=== PATIENT | male | born 1930 ===

== ENCOUNTER 2016-12-19 07:49 | Observation (INO) | payer MEDICARE, MEDICAID ==
[2016-12-19 07:49] VITALS: PULSE 150; BMI 23.9
--- NOTE | 2016-12-19 10:11 | CT ---
PROCEDURE: CT HEAD WITHOUT CONTRAST. HISTORY: Fall COMPARISON: 12/31/2015. TECHNIQUE: Axial computed tomography images were obtained through the head/brain without intravenous contrast. Radiation dose: Total exam DLP = 876.48 mGy-cm. This CT exam was performed using one or more of the following dose reduction techniques: Automated exposure control, adjustment of the mA and/or kV according to patient size, and/or use of iterative reconstruction technique. FINDINGS: HEMORRHAGE: No intracranial hemorrhage. BRAIN: No mass effect or edema. Cortical atrophy, periventricular small vessel disease VENTRICLES: Unremarkable. No hydrocephalus. CALVARIUM: Unremarkable. PARANASAL SINUSES: Chronic sinusitis primarily affecting sphenoid and ethmoid air cells. MASTOID AIR CELLS: Unremarkable as visualized. No inflammatory changes. OTHER FINDINGS: None. IMPRESSION: No acute intracranial abnormalities. No significant findings to account for the clinical presentation. No significant interval change compared to the prior examination(s).
--- NOTE | 2016-12-19 10:22 | CT ---
PROCEDURE: CT Cervical Spine without contrast HISTORY: Status post fall COMPARISON: 12/18/2015 TECHNIQUE: Axial computed tomography images were obtained of the cervical spine without the use of intravenous contrast. Coronal and sagittal reformatted images were created and reviewed. Radiation dose: Total exam DLP = 521.37 mGy-cm. . This relationship is unchanged grossly from: Automated exposure control, adjustment of the mA and/or kV according to patient size, and/or use of iterative reconstruction technique. FINDINGS: VERTEBRAE: The vertebral bodies are maintained in height. There is grade 1 anterolisthesis at C7-T1. This is unchanged from prior examination. There is mild reversal of the normal lordotic curvature of the cervical spine which indicates possible muscular spasm. The atlantoaxial articulation is significant for slight medial displacement of the right lateral C1 mass relative to C2. However, this is unchanged from prior examination and does not represent the sequela of an acute fracture. The left lateral masses are aligned normally. The odontoid process is intact. There is slight anterior displacement of the tip of the odontoid process relative to anterior border of the foramen magnum. This may indicate laxity of the apical dentate ligament. There is no erosion of the odontoid process. There is prominent soft tissue posterior to the odontoid process extending to the body of the C2 vertebra which may reflect an inflammatory arthropathy such as rheumatoid arthritis. Please correlate clinically. DISCS/SPINAL CANAL/NEURAL FORAMINA: There is severe narrowing of multiple intervertebral disc spaces. There is probable ankylosis of the C4-5 intervertebral disc space. There is obliteration of the intervertebral disc space at C5-6 and almost complete obliteration of the C6-7 disc space. There are irregular subchondral lucencies seen beneath the C4-5 intervertebral articulation and more regular lucency beneath the C5-6 intervertebral articulation. These findings are unchanged compared to prior examination. There is severe multilevel degenerative facet arthropathy with july ankylosis of the inter facet articulations at the C 2-3 level. . PARASPINAL SOFT TISSUES: Unremarkable. OTHER FINDINGS: None. IMPRESSION: No evidence of fracture. Severe multilevel degenerative disc disease and degenerative facet arthropathy with july intervertebral ankylosis at C4-5 ankylosis of the facet joints bilaterally at C2-3. Grade 1 anterolisthesis at C7-T1. Slight anterior displacement of the tip of the odontoid process relative to the anterior border of the foramen magnum, slightly worsened when compared to the prior examination of 12/18/2015. Prominent soft tissues posterior to the C2 vertebra including the odontoid process. This may reflect an inflammatory arthropathy such as rheumatoid arthritis. This is not felt to reflect an acute traumatic injury with hemorrhage. Please correlate with any history of inflammatory arthropathy. Additional minor findings as above.
[2016-12-19] MEDS ORDERED: TDAP Vaccine 0.5 mL Syr IM ONE (11:14)
--- NOTE | 2016-12-19 11:16 | ED PDOC ---
HPI: Trauma/Fall - HPI Time Seen by Provider: 12/19/16 08:21 Chief Complaint (Nursing): Trauma Chief Complaint (Provider): fall History Per: Family (daughter) History/Exam Limitations: clinical condition Onset/Duration Of Symptoms: Mins (prior to arrival ) Additional Complaint(s): Miguel Rodriguez is an 86 year old male, with a previous medical history of Alzheimer's disease and dementia, who presents to the ED via EMS accompanied by his daughter for the evaluation of a fall he sustained prior to arrival. Patient was sent from the longterm after he fell off the bed and sustained a laceration to the right side of his head. History is limited secondary to patient's clinical condition PMD: none provided Past Medical History Reviewed: Historical Data, Nursing Documentation, Vital Signs Vital Signs: Last Vital Signs Temp 98.4 F 12/19/16 07:55 Pulse 75 12/19/16 07:55 Resp 18 12/19/16 07:55 BP 132/75 12/19/16 07:55 Pulse Ox 97 12/19/16 15:34 - Medical History PMH: Alzheimer's Disease, Anemia, Anxiety, Atrial Fibrillation, Benign Prostatic Hyperplasia, CAD, Cardia Arrhythmia, COPD, Dementia, Depression, Deep Vein Thrombosis, Fractures, HTN, Hypercholesterolemia, Hyperthyroidism, Hypothyroidism, Pneumonia, Chronic Kidney Disease (Renal insufficiency) Denies: Asthma, HIV - Surgical History Surgical History: Pacemaker - Family History Family History: States: Unknown Family Hx - Immunization History Hx Tetanus Toxoid Vaccination: No Hx Influenza Vaccination: Yes Hx Pneumococcal Vaccination: Yes - Home Medications Home Medications: Ambulatory Orders Medication Instructions Recorded Benztropine [Cogentin] 1 mg PO DAILY 12/26/15 Rivastigmine 4.6 mg/24 hr [Exelon 4.6 mg TD DAILY 12/26/15 4.6 mg/24 hr Patch] Rosuvastatin Calcium [Crestor] 10 mg PO HS 12/26/15 Acetaminophen [Tylenol] 650 mg PO Q4 PRN 12/27/15 Lactulose [Constulose] 10 gm PO BID 12/27/15 Levothyroxine [Synthroid] 88 mcg PO DAILY 12/27/15 Magnesium Hydroxide [Milk Of 30 ml PO HS PRN 12/27/15 Magnesia] Memantine [Namenda] 10 mg PO DAILY 12/27/15 Multivitamin,Therapeutic [Therems] 1 tab PO DAILY 12/27/15 Acetaminophen [Tylenol 325mg tab] 650 mg PO Q4H PRN 02/14/16 Aspirin [Aspirin Chewable] 81 mg PO DAILY 02/14/16 Bisacodyl [Dulcolax] 10 mg AL DAILY PRN 02/14/16 Famotidine [Pepcid] 20 mg PO HS 02/14/16 Ascorbic Acid [Vitamin C] 1,000 mg PO DAILY 07/10/16 guaiFENesin [Robitussin] 10 ml PO Q6H PRN 07/10/16 Albuterol/Ipratropium [Duoneb 3 3 ml INH BID 12/19/16 mg/0.5 mg (3 ml) UD] - Allergies Allergies/Adverse Reactions: Allergies Allergy/AdvReac Type Severity Reaction Status Date / Time No Known Allergies Allergy Verified 07/10/16 16:37 Review of Systems Review Of Systems: ROS cannot be obtained secondary to pt's inabilty to answer questions. Skin: Positive for: Other (laceration to head ) Physical Exam - Reviewed Nursing Documentation Reviewed: Yes Vital Signs Reviewed: Yes - Physical Exam Appears: Positive for: Well, Non-toxic, No Acute Distress Head Exam: Positive for: NORMAL INSPECTION, NORMOCEPHALIC. Negative for: ATRAUMATIC (1.5 cm laceration to the right superior scalp. no active bleeding noted) Skin: Positive for: Normal Color, Warm, DRY Eye Exam: Positive for: EOMI, Normal appearance, PERRL ENT: Positive for: Normal ENT Inspection Neck: Positive for: Normal, Painless ROM Cardiovascular/Chest: Positive for: Regular Rate, Rhythm Respiratory: Positive for: CNT, Normal Breath Sounds Gastrointestinal/Abdominal: Positive for: Normal Exam, Bowel Sounds, Soft. Negative for: Tenderness Back: Positive for: Normal Inspection. Negative for: L CVA Tenderness, R CVA Tenderness, Vertebral Tenderness Extremity: Positive for: Normal ROM (moving all extremities) Neurologic/Psych: Positive for: Alert, Oriented (x 0) - Laboratory Results Result Diagrams: 12/19/16 12:40 12/19/16 12:40 - ECG O2 Sat by Pulse Oximetry: 97 (RA) Pulse Ox Interpretation: Normal Medical Decision Making Medical Decision Making: Initial Impression: Head Injury to the scalp Initial Plan: * EKG * CXR * CT head w/o contrast * CT C-spine * PTT * PT * boostrix vaccine * reevaluation 10:09 CT head FINDINGS: HEMORRHAGE: No intracranial hemorrhage. BRAIN: No mass effect or edema. Cortical atrophy, periventricular small vessel disease VENTRICLES: Unremarkable. No hydrocephalus. CALVARIUM: Unremarkable. PARANASAL SINUSES: Chronic sinusitis primarily affecting sphenoid and ethmoid air cells. MASTOID AIR CELLS: Unremarkable as visualized. No inflammatory changes. OTHER FINDINGS: None. IMPRESSION: No acute intracranial abnormalities. No significant findings to account for the clinical presentation. No significant interval change compared to the prior examination(s). 10:20 CT C-spine FINDINGS: VERTEBRAE: The vertebral bodies are maintained in height. There is grade 1 anterolisthesis at C7-T1. This is unchanged from prior examination. There is mild reversal of the normal lordotic curvature of the cervical spine which indicates possible muscular spasm. The atlantoaxial articulation is significant for slight medial displacement of the right lateral C1 mass relative to C2. However, this is unchanged from prior examination and does not represent the sequela of an acute fracture. The left lateral masses are aligned normally. The odontoid process is intact. There is slight anterior displacement of the tip of the odontoid process relative to anterior border of the foramen magnum. This may indicate laxity of the apical dentate ligament. There is no erosion of the odontoid process. There is prominent soft tissue posterior to the odontoid process extending to the body of the C2 vertebra which may reflect an inflammatory arthropathy such as rheumatoid arthritis. Please correlate clinically. DISCS/SPINAL CANAL/NEURAL FORAMINA: There is severe narrowing of multiple intervertebral disc spaces. There is probable ankylosis of the C4-5 intervertebral disc space. There is obliteration of the intervertebral disc space at C5-6 and almost complete obliteration of the C6-7 disc space. There are irregular subchondral lucencies seen beneath the C4-5 intervertebral articulation and more regular lucency beneath the C5-6 intervertebral articulation. These findings are unchanged compared to prior examination. There is severe multilevel degenerative facet arthropathy with july ankylosis of the inter facet articulations at the C 2-3 level. . PARASPINAL SOFT TISSUES: Unremarkable. OTHER FINDINGS: None. IMPRESSION: No evidence of fracture. Severe multilevel degenerative disc disease and degenerative facet arthropathy with july intervertebral ankylosis at C4-5 ankylosis of the facet joints bilaterally at C2-3. Grade 1 anterolisthesis at C7 -T1. Slight anterior displacement of the tip of the odontoid process relative to the anterior border of the foramen magnum, slightly worsened when compared to the prior examination of 12/18/2015. Prominent soft tissues posterior to the C2 vertebra including the odontoid process. This may reflect an inflammatory arthropathy such as rheumatoid arthritis. This is not felt to reflect an acute traumatic injury with hemorrhage. Please correlate with any history of inflammatory arthropathy. Additional minor findings as above. Scribe Attestation: Documented by Aleyda Huitron, acting as a scribe for lAeyda Osorio MD. Provider Scribe Attestation: All medical record entries made by the Scribe were at my direction and personally dictated by me. I have reviewed the chart and agree that the record accurately reflects my personal performance of the history, physical exam, medical decision making, and the department course for this patient. I have also personally directed, reviewed, and agree with the discharge instructions and disposition. Disposition - Clinical Impression Clinical Impression: Head injury, Scalp laceration - Patient ED Disposition Is Patient to be Admitted: Yes - Disposition Disposition Time: 11:14 Condition: STABLE - Pt Status Changed To: Hospital Disposition Of: Observation - POA Present On Arrival: Falls Or Trauma Laceration - Laceration Repair right superior scalp Wound Length (In cm): 1.5 Description Of Wound: Linear Wound Cleansed With: Sterile Saline Wound Examination: Irrigated With Saline, No FB With Wound Exploration, No Tendon Injury With Wound Exploration Wound Closure: [place] (x 3)
[2016-12-19 12:51] LABS: BASO % 0.5 % (0.0-2.0); EOS # 0.1 K/uL (0.0-0.7); EOS % 1.8 % (0.0-4.0); HEMATOCRIT 40.3 % (35.0-51.0); LYMPH # 2.4 K/uL (1.0-4.3); LYMPH % 29.4 % (20.0-40.0); MEAN CELL VOLUME 94.8 fl (80.0-94.0); MEAN CORPUSCULAR HEMOGLOBIN 30.8 pg (27.0-31.0); MEAN CORPUSCULAR HGB CONC 32.5 g/dL (33.0-37.0); MEAN PLATELET VOLUME 8.8 fl (7.2-11.7); MONO # 0.6 K/uL (0.0-0.8); MONO % 8.1 % (0.0-10.0); NEUT # 4.8 K/uL (1.8-7.0); NEUT % 60.2 % (50.0-75.0); RED CELL DISTRIBUTION WIDTH 14.5 % (11.5-14.5)
[2016-12-19 13:02] LABS: ALB/GLOB RATIO 1.1 (1.0-2.1); ALKALINE PHOSPHATASE 59 U/L (38-126); ALT/SGPT 36 U/L (21-72); AST/SGOT 29 U/L (17-59); BILIRUBIN,TOTAL 0.9 mg/dl (0.2-1.3); BLOOD UREA NITROGEN 14 mg/dl (9-20); CALCIUM 9.2 mg/dL (8.4-10.2); CARBON DIOXIDE 26 mmol/L (22-30); CHLORIDE 106 mmol/L (98-107); GFR AFRICAN-AMERICAN > 60; GLUCOSE,RANDOM 84 mg/dL (75-110); POTASSIUM 4.6 MMOL/L (3.6-5.0); SODIUM 139 mmol/l (132-148); TOTAL PROTEIN 7.3 G/DL (6.3-8.2)
[2016-12-19 13:08] LABS: PARTIAL THROMBOPLASTIN TIME 24.9 Seconds (25.6-37.1)
--- NOTE | 2016-12-19 17:25 | RAD ---
HISTORY: Admission COMPARISON: 07/14/2016. FINDINGS: LUNGS: No active pulmonary disease. PLEURA: No significant pleural effusion identified, no pneumothorax apparent. CARDIOVASCULAR: Normal. OSSEOUS STRUCTURES: No significant abnormalities. VISUALIZED UPPER ABDOMEN: Normal. OTHER FINDINGS: None. IMPRESSION: No active disease.
[2016-12-19] MEDS ORDERED: Magnesium Hydroxide Susp 30 ml UD PO PRN (21:02)
[2016-12-19] MEDS ORDERED: guaiFENesin 100 mg/5 ml Syrup UD PO PRN (21:02)
[2016-12-19] MEDS: Lactulose 10 gm/15 ml Syrup PO SCH (22:30)
[2016-12-20] MEDS ORDERED: guaiFENesin 200 mg/10 ml Syrup UD PO PRN (01:30)
[2016-12-20] MEDS ORDERED: Levothyroxine 88 MCG TAB PO SCH (06:30)
[2016-12-20 06:53] LABS: ALB/GLOB RATIO 1.1 (1.0-2.1); ALKALINE PHOSPHATASE 56 U/L (38-126); ALT/SGPT 34 U/L (21-72); AST/SGOT 31 U/L (17-59); BILIRUBIN,TOTAL 0.8 mg/dl (0.2-1.3); BLOOD UREA NITROGEN 13 mg/dl (9-20); CALCIUM 8.9 mg/dL (8.4-10.2); CARBON DIOXIDE 26 mmol/L (22-30); CHLORIDE 105 mmol/L (98-107); CHOLESTEROL 94 mg/dL (0-199); GFR AFRICAN-AMERICAN > 60; GLUCOSE,RANDOM 85 mg/dL (75-110); POTASSIUM 4.3 MMOL/L (3.6-5.0); SODIUM 137 mmol/l (132-148); TOTAL PROTEIN 6.7 G/DL (6.3-8.2)
[2016-12-20 07:01] LABS: BASO # 0.1 K/uL (0.0-0.2); BASO % 0.7 % (0.0-2.0); EOS # 0.2 K/uL (0.0-0.7); EOS % 2.6 % (0.0-4.0); HEMATOCRIT 38.2 % (35.0-51.0); LYMPH # 1.9 K/uL (1.0-4.3); LYMPH % 27.6 % (20.0-40.0); MEAN CELL VOLUME 93.6 fl (80.0-94.0); MEAN CORPUSCULAR HEMOGLOBIN 31.2 pg (27.0-31.0); MEAN CORPUSCULAR HGB CONC 33.3 g/dL (33.0-37.0); MEAN PLATELET VOLUME 8.9 fl (7.2-11.7); MONO # 0.8 K/uL (0.0-0.8); MONO % 10.8 % (0.0-10.0); NEUT # 4.1 K/uL (1.8-7.0); NEUT % 58.3 % (50.0-75.0); NRBC % 0.1 % (0.0-0.0)
[2016-12-20 07:17] LABS: THYROID STIMULATING HORMONE 0.71 mIU/ML (0.46-4.68)
[2016-12-20] MEDS ORDERED: Albuterol-Ipratrop 3 mg / 0.5 (3 ml) UD INH SCH (09:00)
[2016-12-20] MEDS ORDERED: Multivitamin With Minerals Tab PO SCH (09:00)
[2016-12-20] MEDS ORDERED: Pneumococcal 23-Valent Vaccine IM ONE (09:07)
[2016-12-20] MEDS: Lactulose 10 gm/15 ml Syrup PO SCH ×2 (09:40→16:50)
[2016-12-20 12:59] VITALS: O2SAT 98
--- NOTE | 2016-12-20 14:19 | CP.PCM.HP ---
History of Present Illness - History of Present Illness History of Present Illness: CC: S/P Fall-Trauma. 86 y/o M, brought from [facility] by EMS and accompany by daughter to [facility] on 12/19/16 to be treated for Head injury associated to fall on DOA with no relief. As per EMS, Pt fell to ground floor from his bed sustaining a scalp laceration to R posterior skull minutes [employer], no c/o of pain, no LOC, no fever. Worsening symptoms: Hx of fall, Dementia, Alzheimer's Disease. Aggravating factor: Pt non verbal, confined to bed/chair > 50% of the day. No: Fever, chills, n/v/d, abdominal pain, CP, palpitations, SOB, cough, LOC, syncope, sick contact. PMHx: Hx Falls, COPD, A Fib, CAD with PPM, HTN, CKD, Renal Insufficiency, DVT 2015, BPH, Hypothyroidism, Hx Osteomyelitis L posterior calcaneous, Dementia, Alzheimer, Depression, Anxiety, Hx. PNA, UTI. CXR shows: No active disease. CT Head: No acute intracranial abnormalities. Cervical CT: No evidence of Fx, severe multilevel degenerative disease. Present on Admission - Present on Admission Any Indicators Present on Admission: Yes History of DVT/PE: Yes Review of Systems - Review of Systems Systems not reviewed;Unavailable: Acuity of Condition, Dementia (non verbal) Past Patient History - Infectious Disease Hx of Infectious Diseases: None - Tetanus Immunizations Tetanus Immunization: Unknown - Past Medical History & Family History Past Medical History?: Yes Pertinent Family History: Unknown - Past Social History Smoking Status: Never Smoked Alcohol: None Drugs: Denies Home Situation {Lives}: Half-Way - CARDIAC Hx Cardiac Disorders: Yes (HLD,PACEMAKER,HTN,AFIB,CAD,DVT) - PULMONARY Hx Respiratory Disorders: Yes Hx Chronic Obstructive Pulmonary Disease (COPD): Yes - NEUROLOGICAL Hx Neurological Disorder: Yes (ALZHEIMER,DEMENTIA) - HEENT Hx HEENT Problems: No - RENAL Hx Chronic Kidney Disease: Yes (Renal insufficiency) - ENDOCRINE/METABOLIC Hx Endocrine Disorders: Yes (HYPOTHYROID) - HEMATOLOGICAL/ONCOLOGICAL Hx Blood Disorders: Yes (ANEMIA) - INTEGUMENTARY Hx Dermatological Problems: No - MUSCULOSKELETAL/RHEUMATOLOGICAL Hx Musculoskeletal Disorders: Yes Hx Falls: Yes Hx Osteomyelitis: Yes (L poterior calcaneous) - GASTROINTESTINAL Hx Gastrointestinal Disorders: No - GENITOURINARY/GYNECOLOGICAL Hx Genitourinary Disorders: Yes Hx Incontinence: Yes Hx Prostate Cancer: Yes (BPH) - PSYCHIATRIC Hx Psychophysiologic Disorder: Yes Hx Anxiety: Yes Hx Depression: Yes Hx Substance Use: No - SURGICAL HISTORY Hx Surgeries: Yes Other/Comment: pacemaker - ANESTHESIA Hx Anesthesia: Yes Hx Anesthesia Reactions: No Meds Allergies/Adverse Reactions: Allergies Allergy/AdvReac Type Severity Reaction Status Date / Time No Known Allergies Allergy Verified 07/10/16 16:37 Physical Exam - Constitutional Appears: No Acute Distress, Chronically Ill - Head Exam Additional comments: Laceration R superior scalp with isaac in place. - Eye Exam Eye Exam: PERRL - ENT Exam ENT Exam: Normal Oropharynx - Neck Exam Neck exam: Positive for: Normal Inspection - Respiratory Exam Respiratory Exam: NORMAL BREATHING PATTERN - Cardiovascular Exam Cardiovascular Exam: REGULAR RHYTHM, Systolic Murmur (1/6 LSB) - GI/Abdominal Exam GI & Abdominal Exam: Normal Bowel Sounds, Soft - Back Exam Additional comments: Sacral redness - Neurological Exam Additional comments: Awake, non verbal, unable to follows commands. - Psychiatric Exam Psychiatric exam: Anxious - Skin Skin Exam: Warm Results - Vital Signs Recent Vital Signs: Last Vital Signs Temp 97.0 F L 12/20/16 12:58 Pulse 75 12/20/16 12:58 Resp 18 12/20/16 12:58 BP 122/64 12/20/16 12:58 Pulse Ox 98 12/20/16 12:58 reviewed Geovanna - Labs Result Diagrams: 12/20/16 05:55 12/20/16 05:55 Labs: Laboratory Results - last 24 hr 12/20/16 12/20/16 05:55 05:55 WBC 7.0 RBC 4.08 L Hgb 12.7 Hct 38.2 MCV 93.6 MCH 31.2 H MCHC 33.3 RDW 14.0 Plt Count 128 L MPV 8.9 Neut % (Auto) 58.3 Lymph % (Auto) 27.6 [place] % (Auto) 10.8 H Eos % (Auto) 2.6 Baso % (Auto) 0.7 Neut # 4.1 Lymph # 1.9 [place] # 0.8 Eos # 0.2 Baso # 0.1 Sodium 137 Potassium 4.3 Chloride 105 Carbon Dioxide 26 Anion Gap 10 BUN 13 Creatinine 0.8 Est GFR ( Amer) > 60 Est GFR (Non-Af Amer) > 60 Random Glucose 85 Calcium 8.9 Total Bilirubin 0.8 AST 31 ALT 34 Alkaline Phosphatase 56 Total Protein 6.7 Albumin 3.5 Globulin 3.2 Albumin/Globulin Ratio 1.1 Triglycerides 56 D Cholesterol 94 LDL Cholesterol Direct 47 HDL Cholesterol 30 TSH 3rd Generation 0.71 reviewed J.P. - Impressions Impression: Cervical Spine CT Reviewed J.P. - Imaging and Cardiology Chest x-ray Status: Report reviewed by me (J.P.) CT scan - head Status: Report reviewed by me (J.P.) Assessment & Plan (1) Scalp laceration Status: Acute Priority: High Comment: R side (2) Fall Status: Acute Priority: High (3) Chronic dementia Status: Chronic Priority: High (4) COPD (chronic obstructive pulmonary disease) Status: Chronic Priority: Medium (5) Hx of deep venous thrombosis Status: Chronic Priority: Medium (6) Hypothyroidism Status: Acute Priority: Medium - Assessment and Plan (Free Text) Plan: Continue Duoneb, Tylenol, Ativan, Namenda and rest of Tx. f/u EKG, OT, speech therapy, swallow eval. - Date & Time Date: 12/20/16 Time: 09:30
[2016-12-20 15:48] VITALS: BP 121/80; PULSE 73; RESP 20; TEMP 98.5
--- NOTE | 2016-12-20 18:01 | CARD ---
APPROVED REPORT EKG Measurement Heart [id number] NV 170P [id number] <Conclusion> Normal sinus rhythm Junctional ST depression, probably normal Borderline ECG
--- NOTE | 2017-01-03 11:34 | CP.PCM.DIS ---
Provider - Provider Date of Admission: 12/19/16 11:14 Attending physician: Sid Pérez MD Time Spent in preparation of Discharge (in minutes): 25 Diagnosis - Discharge Diagnosis (1) Scalp laceration Status: Acute Priority: High (2) Fall Status: Acute Priority: High (3) Chronic dementia Status: Chronic Priority: High (4) COPD (chronic obstructive pulmonary disease) Status: Chronic Priority: Medium (5) Hx of deep venous thrombosis Status: Chronic Priority: Medium (6) Hypothyroidism Status: Acute Priority: Medium Hospital Course - Lab Results Lab Results: Most Recent Lab Values WBC 7.0 K/uL (4.8-10.8) 12/20/16 05:55 RBC 4.08 Mil/uL (4.40-5.90) L 12/20/16 05:55 Hgb 12.7 g/dL (12.0-18.0) 12/20/16 05:55 Hct 38.2 % (35.0-51.0) 12/20/16 05:55 MCV 93.6 fl (80.0-94.0) 12/20/16 05:55 MCH 31.2 pg (27.0-31.0) H 12/20/16 05:55 MCHC 33.3 g/dL (33.0-37.0) 12/20/16 05:55 RDW 14.0 % (11.5-14.5) 12/20/16 05:55 Plt Count 128 K/uL (130-400) L 12/20/16 05:55 MPV 8.9 fl (7.2-11.7) 12/20/16 05:55 Neut % (Auto) 58.3 % (50.0-75.0) 12/20/16 05:55 Lymph % (Auto) 27.6 % (20.0-40.0) 12/20/16 05:55 [place] % (Auto) 10.8 % (0.0-10.0) H 12/20/16 05:55 Eos % (Auto) 2.6 % (0.0-4.0) 12/20/16 05:55 Baso % (Auto) 0.7 % (0.0-2.0) 12/20/16 05:55 Neut # 4.1 K/uL (1.8-7.0) 12/20/16 05:55 Lymph # 1.9 K/uL (1.0-4.3) 12/20/16 05:55 Lucas # 0.8 K/uL (0.0-0.8) 12/20/16 05:55 Eos # 0.2 K/uL (0.0-0.7) 12/20/16 05:55 Baso # 0.1 K/uL (0.0-0.2) 12/20/16 05:55 PT 11.6 Seconds (9.8-13.1) 12/19/16 12:40 INR 1.1 (0.9-1.2) 12/19/16 12:40 APTT 24.9 Seconds (25.6-37.1) L 12/19/16 12:40 Sodium 137 mmol/l (132-148) 12/20/16 05:55 Potassium 4.3 MMOL/L (3.6-5.0) 12/20/16 05:55 Chloride 105 mmol/L (98-107) 12/20/16 05:55 Carbon Dioxide 26 mmol/L (22-30) 12/20/16 05:55 Anion Gap 10 (10-20) 12/20/16 05:55 BUN 13 mg/dl (9-20) 12/20/16 05:55 Creatinine 0.8 mg/dL (0.8-1.5) 12/20/16 05:55 Est GFR ( Amer) > 60 12/20/16 05:55 Est GFR (Non-Af Amer) > 60 12/20/16 05:55 Random Glucose 85 mg/dL (75-110) 12/20/16 05:55 Calcium 8.9 mg/dL (8.4-10.2) 12/20/16 05:55 Total Bilirubin 0.8 mg/dl (0.2-1.3) 12/20/16 05:55 AST 31 U/L (17-59) 12/20/16 05:55 ALT 34 U/L (21-72) 12/20/16 05:55 Alkaline Phosphatase 56 U/L (38-126) 12/20/16 05:55 Total Protein 6.7 G/DL (6.3-8.2) 12/20/16 05:55 Albumin 3.5 g/dL (3.5-5.0) 12/20/16 05:55 Globulin 3.2 gm/dL (2.2-3.9) 12/20/16 05:55 Albumin/Globulin Ratio 1.1 (1.0-2.1) 12/20/16 05:55 Triglycerides 56 mg/DL (0-149) D 12/20/16 05:55 Cholesterol 94 mg/dL (0-199) 12/20/16 05:55 LDL Cholesterol Direct 47 mg/dL (0-129) 12/20/16 05:55 HDL Cholesterol 30 MG/DL (30-70) 12/20/16 05:55 TSH 3rd Generation 0.71 mIU/ML (0.46-4.68) 12/20/16 05:55 - Date & Time of H&P Date of H&P: 12/20/16 Time of H&P: 09:30 Discharge Exam - Head Exam Head Exam: NORMAL INSPECTION, NORMOCEPHALIC. absent: ATRAUMATIC (1.5 cm laceration to the right superior scalp. no active bleeding noted) Discharge Plan - Follow Up Plan Condition: STABLE Disposition: TRANSF TO SNF Additional Instructions: patient cleared for discharge to [facility] today by Dr.Pinal wilcox. current meds Referrals: Sid Pérez MD [Staff Provider] -
== END 2016-12-20 20:20 ==
LOC: H.ER 07:49 → H.ERHOLD 11:14 → H.TEL 16:31
PROVIDERS: ADMIT Internal Medicine Pulmonary Disease; ATTEND Internal Medicine Pulmonary Disease
DX: S01.01XA Laceration without foreign body of scalp, initial encounter (principal); G30.9 Alzheimer's disease, unspecified; F02.80 Dementia in other diseases classified elsewhere, unspecified severity, without behavioral disturbance, psychotic disturbance, mood disturbance, and anxiety; I12.9 Hypertensive chronic kidney disease with stage 1 through stage 4 chronic kidney disease, or unspecified chronic kidney disease; M50.321 Other cervical disc degeneration at C4-C5 level; I48.91 Unspecified atrial fibrillation; I25.10 Atherosclerotic heart disease of native coronary artery without angina pectoris; N18.9 Chronic kidney disease, unspecified; E03.9 Hypothyroidism, unspecified; E78.00 Pure hypercholesterolemia, unspecified; J44.9 Chronic obstructive pulmonary disease, unspecified; N40.0 Benign prostatic hyperplasia without lower urinary tract symptoms; Z23 Encounter for immunization; W06.XXXA Fall from bed, initial encounter; Z95.0 Presence of cardiac pacemaker; Z91.81 History of falling; Z74.01 Bed confinement status; Z85.46 Personal history of malignant neoplasm of prostate; Z86.718 Personal history of other venous thrombosis and embolism; Z87.01 Personal history of pneumonia (recurrent); Y92.129 Unspecified place in nursing home as the place of occurrence of the external cause
CPT/HCPCS: 36415; 70450; 71010; 72125; 80053; 80061; 84443; 85025; 85610; 85730; 90471; 90715; 90732; 92526; 92610; 93005; 94640; 99285; G0009; G0378; G8996; G8997; J2060

== ENCOUNTER 2017-11-02 14:09 | Inpatient (IN) | payer MEDICARE, MEDICAID ==
[2017-11-02 14:09] VITALS: PULSE 150
--- NOTE | 2017-11-02 14:44 | ED PDOC ---
HPI: Altered Mental Status Time Seen by Provider: 11/02/17 14:18 Chief Complaint (Nursing): Altered Mental Status Chief Complaint (Provider): possible seizure History Per: EMS History/Exam Limitations: Other (confusion) Onset/Duration Of Symptoms: Mins (prior to arrival) Current Symptoms Are (Timing): Still Present Additional History Per: Retirement Additional Complaint(s): 86 year old male presents to the emergency department via EMS after the [facility] reported possible seizure activity. Per EMS, the patient's upper extremities were shaking in the ambulance on the way over, but they do not believe it was a seizure. Patient is unable to provide more history due to confusion, but additional information was gathered from previous charts. PMD: Sid Pérez Past Medical History Reviewed: Historical Data, Nursing Documentation, Vital Signs Vital Signs: Last Vital Signs Temp 98 F 11/02/17 14:14 Pulse 88 11/02/17 14:14 Resp 18 11/02/17 14:14 BP 148/78 11/02/17 14:14 Pulse Ox 99 11/02/17 14:14 - Medical History PMH: Alzheimer's Disease, Anemia, Anxiety, Atrial Fibrillation, Benign Prostatic Hyperplasia, CAD, Cardia Arrhythmia, COPD, Dementia, Depression, Deep Vein Thrombosis, Fractures, HTN, Hypercholesterolemia, Hyperthyroidism, Hypothyroidism, Pneumonia, Chronic Kidney Disease (Renal insufficiency) Denies: Asthma, HIV - Surgical History Surgical History: Pacemaker - Family History Family History: States: Unknown Family Hx - Living Arrangements Living Arrangements: Retirement/Assist Lvng - Social History Current smoker - smoking cessation education provided: No Alcohol: None Drugs: Denies - Immunization History Hx Tetanus Toxoid Vaccination: No Hx Influenza Vaccination: Yes Hx Pneumococcal Vaccination: Yes - Home Medications Home Medications: Ambulatory Orders Medication Instructions Recorded Benztropine [Cogentin] 1 mg PO DAILY 12/26/15 Rosuvastatin Calcium [Crestor] 10 mg PO HS 12/26/15 Acetaminophen [Tylenol] 650 mg PO Q4 PRN 12/27/15 Lactulose [Constulose] 10 gm PO BID 12/27/15 Magnesium Hydroxide [Milk Of 30 ml PO HS PRN 12/27/15 Magnesia] Memantine [Namenda] 10 mg PO DAILY 12/27/15 Multivitamin,Therapeutic [Therems] 1 tab PO DAILY 12/27/15 Acetaminophen [Tylenol 325mg tab] 650 mg PO Q4H PRN 02/14/16 Aspirin [Aspirin Chewable] 81 mg PO DAILY 02/14/16 Bisacodyl [Dulcolax] 10 mg [place] DAILY PRN 02/14/16 Famotidine [Pepcid] 20 mg PO HS 02/14/16 Ascorbic Acid [Vitamin C] 1,000 mg PO DAILY 07/10/16 guaiFENesin [Robitussin] 10 ml PO Q6H PRN 07/10/16 Albuterol/Ipratropium [Duoneb 3 3 ml INH Q12 12/19/16 mg/0.5 mg (3 ml) UD] Levothyroxine [Synthroid] 75 mcg PO DAILY 11/02/17 Rivastigmine Tartrate 4.5 mg PO DAILY 11/02/17 [Rivastigmine] - Allergies Allergies/Adverse Reactions: Allergies Allergy/AdvReac Type Severity Reaction Status Date / Time No Known Allergies Allergy Verified 07/10/16 16:37 Review of Systems Review Of Systems: ROS cannot be obtained secondary to pt's inabilty to answer questions. Neurological: Positive for: Seizures (possibly, according to fdc) Physical Exam - Reviewed Nursing Documentation Reviewed: Yes Vital Signs Reviewed: Yes - Physical Exam Appears: Positive for: No Acute Distress Head Exam: Positive for: ATRAUMATIC, NORMOCEPHALIC Eye Exam: Positive for: Normal appearance, EOMI, PERRL Neck: Positive for: Normal, Painless ROM, Supple Cardiovascular/Chest: Positive for: Regular Rate, Rhythm. Negative for: Murmur Respiratory: Positive for: Normal Breath Sounds. Negative for: Accessory Muscle Use, Rales, Rhonchi, Wheezing, Respiratory Distress Gastrointestinal/Abdominal: Positive for: Normal Exam, Soft. Negative for: Tenderness Back: Positive for: Normal Inspection Extremity: Positive for: Normal ROM Neurologic/Psych: Positive for: Oriented (x1), Other (awake). Negative for: Motor/Sensory Deficits - Laboratory Results Result Diagrams: 11/02/17 14:50 11/02/17 14:50 - ECG O2 Sat by Pulse Oximetry: 99 (RA) Pulse Ox Interpretation: Normal Medical Decision Making Medical Decision Making: Initial Impression: possible seizure, altered mental status Time: 14:37 Initial Plan: --CT Head w/o contrast --CMP --CBC with differential Scribe Attestation: Documented by Maggy Saldaña, acting as a scribe for Richy Porter MD. Provider Scribe Attestation: All medical entries made by the Scribe were at my direction and personally dictated by me. I have reviewed the chart and agree that the record accurately reflects my personal performance of the history, physical exam, medical decision making, and the department course for this patient. I have also personally directed, reviewed, and agree with the discharge instructions and disposition. Disposition - Clinical Impression Clinical Impression: Seizure - Patient ED Disposition Is Patient to be Admitted: Yes - Disposition Disposition Time: 15:44 Condition: FAIR Instructions: Seizures Forms: [employer] ([employer])
[2017-11-02 15:04] LABS: BASO % 0.6 % (0.0-2.0); EOS # 0.2 K/uL (0.0-0.7); EOS % 3.1 % (0.0-4.0); HEMOGLOBIN 13.9 g/dL (12.0-18.0); LYMPH # 1.2 K/uL (1.0-4.3); LYMPH % 16.3 % (20.0-40.0); MEAN CELL VOLUME 94.6 fl (80.0-94.0); MEAN CORPUSCULAR HEMOGLOBIN 30.9 pg (27.0-31.0); MEAN CORPUSCULAR HGB CONC 32.6 g/dL (33.0-37.0); MEAN PLATELET VOLUME 9.3 fl (7.2-11.7); MONO # 0.4 K/uL (0.0-0.8); MONO % 5.8 % (0.0-10.0); NEUT # 5.6 K/uL (1.8-7.0); NEUT % 74.2 % (50.0-75.0); RBC 4.51 Mil/uL (4.40-5.90); RED CELL DISTRIBUTION WIDTH 14.6 % (11.5-14.5); WHITE BLOOD COUNT 7.5 K/uL (4.8-10.8)
[2017-11-02 15:21] LABS: ALBUMIN 3.9 g/dL (3.5-5.0); ALT/SGPT 32 U/L (21-72); AST/SGOT 31 U/L (17-59); BLOOD UREA NITROGEN 19 mg/dl (9-20); CALCIUM 9.2 mg/dL (8.4-10.2); GFR AFRICAN-AMERICAN > 60; GFR NON-AFRICAN AMERICAN > 60
[2017-11-02 16:52] LABS: PROTHROMBIN TIME 10.9 Seconds (9.8-13.1)
--- NOTE | 2017-11-02 17:15 | CT ---
PROCEDURE: CT HEAD WITHOUT CONTRAST. HISTORY: r/o bleed COMPARISON: 12/19/2016 TECHNIQUE: Axial computed tomography images were obtained through the head/brain without intravenous contrast. Radiation dose: Total exam DLP = 1010.18 mGy-cm. This CT exam was performed using one or more of the following dose reduction techniques: Automated exposure control, adjustment of the mA and/or kV according to patient size, and/or use of iterative reconstruction technique. FINDINGS: HEMORRHAGE: No intracranial hemorrhage. BRAIN: No mass effect or edema. 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 No evidence of acute infarct. Moderate diffuse age-appropriate cerebral atrophy. Moderate periventricular white matter lucency with patchy and confluent deep white matter lucency, consistent with chronic microvascular ischemic change. VENTRICLES: Unremarkable. No hydrocephalus. CALVARIUM: Unremarkable. PARANASAL SINUSES: Unremarkable as visualized. No significant inflammatory changes. MASTOID AIR CELLS: Unremarkable as visualized. No inflammatory changes. OTHER FINDINGS: None. IMPRESSION: No evidence of acute infarct. 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 Chronic microvascular ischemic change. Moderate age-appropriate atrophy.
[2017-11-02] MEDS ORDERED: guaiFENesin 100 mg/5 ml Syrup UD PO PRN (20:37)
[2017-11-02] MEDS ORDERED: LACTULOSE 10 GM PO PRN (20:37)
[2017-11-02] MEDS ORDERED: Magnesium Hydroxide Susp 30 ml UD PO PRN (20:37)
[2017-11-02] MEDS ORDERED: Lactulose 10 gm/15 ml Syrup PO PRN (21:00)
[2017-11-02] MEDS: Albuterol-Ipratrop 3 mg / 0.5 (3 ml) UD INH SCH (21:00)
[2017-11-02] MEDS ORDERED: Patient's Own Med (Rosuvastatin Calcium [Crestor] 10 MG) PO SCH (22:00)
[2017-11-03] MEDS: Levothyroxine 75 MCG TAB PO SCH (05:36)
[2017-11-03] MEDS ORDERED: guaiFENesin 200 mg/10 ml Syrup UD PO PRN (06:15)
[2017-11-03] MEDS: Albuterol-Ipratrop 3 mg / 0.5 (3 ml) UD INH SCH ×2 (07:07→19:16)
[2017-11-03 07:38] LABS: LDL CHOLESTEROL 46 mg/dL (0-129)
[2017-11-03 07:42] LABS: T4 8.64 ug/dl (5.5-11.0)
[2017-11-03 07:46] LABS: ALBUMIN 3.6 g/dL (3.5-5.0); ALT/SGPT 39 U/L (21-72); AST/SGOT 33 U/L (17-59); BLOOD UREA NITROGEN 19 mg/dl (9-20); CALCIUM 9.2 mg/dL (8.4-10.2); GFR AFRICAN-AMERICAN > 60; GFR NON-AFRICAN AMERICAN > 60; HDL CHOLESTEROL 27 MG/DL (30-70)
[2017-11-03 08:08] LABS: HEMOGLOBIN 13.6 g/dL (12.0-18.0); MEAN CELL VOLUME 93.1 fl (80.0-94.0); MEAN CORPUSCULAR HEMOGLOBIN 31.4 pg (27.0-31.0); MEAN CORPUSCULAR HGB CONC 33.7 g/dL (33.0-37.0); RBC 4.32 Mil/uL (4.40-5.90); RED CELL DISTRIBUTION WIDTH 14.5 % (11.5-14.5); WHITE BLOOD COUNT 8.7 K/uL (4.8-10.8)
[2017-11-03] MEDS: Multivitamin With Minerals Tab PO SCH (08:53)
[2017-11-03] MEDS ORDERED: RIVASTIGMINE TARTRATE 4.5 MG PO SCH (09:00)
[2017-11-03] MEDS ORDERED: MULTIVITAMIN THERAPEUTIC PO SCH (09:00)
--- NOTE | 2017-11-03 13:15 | CP.PCM.CON ---
History of Present Illness - History of Present Illness History of Present Illness: Mr. Rodriguez is an 86-year-old man with a past medical history of Alzheimer's Disease, Anemia, Anxiety, Atrial Fibrillation, Benign Prostatic Hyperplasia, CAD , Cardia Arrhythmia, COPD, Dementia, Depression, Deep Vein Thrombosis, Fractures , HTN, Hypercholesterolemia, Hyperthyroidism, Hypothyroidism, Pneumonia, Chronic Kidney Disease (Renal insufficiency), who was reportedly witnessed having some abnormal movements at the [facility]. EMS was called and when they arrived, they witnessed these movements and did not believe they were seizures, but the patient was nevertheless brought to the ED. He was awake, alert and did not have any significant movements. CT scan of the head did not show any concerning findings. When I saw the patient, he was at his baseline according to his daughter, who was present at bedside. She informed me that what was actually witnessed at the [facility] was an episode of loss of consciousness that occurred after the patient had eaten. He had some shaking/stiffening and then lost consciousness for about 3-4 minutes. It is not clear if there was any urinary/ bowel incontinence, but there was no evidence of injury to the mouth or teeth. Review of Systems - Review of Systems All systems: reviewed and no additional remarkable complaints except Past Patient History - Infectious Disease Hx of Infectious Diseases: None - Tetanus Immunizations Tetanus Immunization: Unknown - Past Medical History & Family History Past Medical History?: Yes - Past Social History Smoking Status: Never Smoked - CARDIAC Hx Cardiac Disorders: Yes Hx Hypercholesterolemia: Yes Hx Hypertension: Yes Hx Pacemaker: Yes - PULMONARY Hx Respiratory Disorders: Yes Hx Chronic Obstructive Pulmonary Disease (COPD): Yes Hx Pneumonia: Yes - NEUROLOGICAL Hx Neurological Disorder: Yes Hx Alzheimer's Disease: Yes Hx Dementia: Yes - HEENT Hx HEENT Problems: No - RENAL Hx Chronic Kidney Disease: Yes (Renal insufficiency) - ENDOCRINE/METABOLIC Hx Endocrine Disorders: Yes Hx Diabetes Mellitus Type 2: Yes Hx Hypothyroidism: Yes - HEMATOLOGICAL/ONCOLOGICAL Hx Blood Disorders: Yes Hx AIDS: No Hx Anemia: Yes Hx Human Immunodeficiency Virus (HIV): No - INTEGUMENTARY Hx Dermatological Problems: No - MUSCULOSKELETAL/RHEUMATOLOGICAL Hx Musculoskeletal Disorders: No Hx Falls: No Hx Fractures: Yes - GASTROINTESTINAL Hx Gastrointestinal Disorders: Yes Hx Constipation: Yes HX Swallowing Problems: Yes - GENITOURINARY/GYNECOLOGICAL Hx Genitourinary Disorders: Yes Hx Incontinence: Yes Hx Prostate Problems: Yes (bph) - PSYCHIATRIC Hx Psychophysiologic Disorder: Yes Hx Anxiety: Yes Hx Substance Use: No - SURGICAL HISTORY Hx Surgeries: Yes Other/Comment: pacemaker - ANESTHESIA Hx Anesthesia: Yes Hx Anesthesia Reactions: No Meds Allergies/Adverse Reactions: Allergies Allergy/AdvReac Type Severity Reaction Status Date / Time No Known Allergies Allergy Verified 07/10/16 16:37 - Medications Medications: Current Medications Acetaminophen (Tylenol 325mg Tab) 650 mg PO Q4 PRN PRN Reason: TEMP >101 Acetaminophen (Tylenol 325mg Tab) 650 mg PO Q4H PRN PRN Reason: Pain, Mild (1-3) Albuterol/Ipratropium (Duoneb 3 Mg/0.5 Mg (3 Ml) Ud) 3 ml INH Q12 [facility] Last Admin: 11/03/17 07:07 Dose: 3 ml Ascorbic Acid (Vitamin C 500 Mg Tab) 1,000 mg PO DAILY [facility] Last Admin: 11/03/17 08:55 Dose: 1,000 mg Aspirin (Aspirin Chewable) 81 mg PO DAILY [facility] Last Admin: 11/03/17 08:54 Dose: 81 mg Atorvastatin Calcium (Lipitor) 20 mg PO HS [facility] Last Admin: 11/02/17 22:11 Dose: 20 mg Benztropine Mesylate (Cogentin) 1 mg PO DAILY [facility] Last Admin: 11/03/17 08:55 Dose: 1 mg Bisacodyl (Dulcolax) 10 mg [place] DAILY PRN PRN Reason: Constipation Famotidine (Pepcid) 20 mg PO HS [facility] Last Admin: 11/02/17 22:11 Dose: 20 mg Guaifenesin (Robitussin) 200 mg PO Q6H PRN PRN Reason: Cough Lactulose (Enulose) 10 gm PO BID PRN PRN Reason: Constipation Levothyroxine Sodium (Synthroid) 75 mcg PO DAILY@0630 [facility] Last Admin: 11/03/17 05:36 Dose: 75 mcg Magnesium Hydroxide (Milk Of Magnesia) 30 ml PO HS PRN PRN Reason: Constipation Memantine (Namenda) 10 mg PO DAILY [facility] Last Admin: 11/03/17 08:55 Dose: 10 mg Multivitamins/Minerals (Therapeutic-M Tab) 1 tab PO DAILY [facility] Last Admin: 11/03/17 08:53 Dose: 1 tab Rivastigmine (Exelon Cap) 4.5 mg PO DAILY [facility] Last Admin: 11/03/17 10:59 Dose: Not Given Physical Exam - Neurological Exam Neurological exam: Altered, CN II-XII Intact Additional comments: Confused/demented, generalized weakness, bedbound no focal deficits. Reflexes were normal. Results - Vital Signs Recent Vital Signs: Last Vital Signs Temp 96.8 F L 11/03/17 12:00 Pulse 64 11/03/17 12:00 Resp 20 11/03/17 12:00 BP 107/71 11/03/17 12:00 Pulse Ox 98 11/03/17 12:00 - Labs Result Diagrams: 11/03/17 05:40 11/03/17 05:40 Labs: Laboratory Results - last 24 hr 11/02/17 11/02/17 11/02/17 14:50 14:50 16:19 WBC 7.5 RBC 4.51 Hgb 13.9 Hct 42.6 MCV 94.6 H MCH 30.9 MCHC 32.6 L RDW 14.6 H Plt Count 135 MPV 9.3 Neut % (Auto) 74.2 Lymph % (Auto) 16.3 L [place] % (Auto) 5.8 Eos % (Auto) 3.1 Baso % (Auto) 0.6 Neut # (Auto) 5.6 Lymph # (Auto) 1.2 [place] # (Auto) 0.4 Eos # (Auto) 0.2 Baso # (Auto) 0.0 PT 10.9 INR 1.0 Sodium 142 Potassium 4.7 Chloride 102 Carbon Dioxide 25 Anion Gap 20 BUN 19 Creatinine 0.8 Est GFR ( Amer) > 60 Est GFR (Non-Af Amer) > 60 POC Glucose (mg/dL) Random Glucose 106 Calcium 9.2 Magnesium Total Bilirubin 0.8 AST 31 ALT 32 Alkaline Phosphatase 56 Total Protein 7.9 Albumin 3.9 Globulin 4.0 H Albumin/Globulin Ratio 1.0 Triglycerides Cholesterol LDL Cholesterol Direct HDL Cholesterol Thyroxine (T4) TSH 3rd Generation 11/02/17 11/03/17 11/03/17 21:21 04:41 05:40 WBC 8.7 RBC 4.32 L Hgb 13.6 Hct 40.3 MCV 93.1 MCH 31.4 H MCHC 33.7 RDW 14.5 Plt Count 123 L MPV Neut % (Auto) Lymph % (Auto) [place] % (Auto) Eos % (Auto) Baso % (Auto) Neut # (Auto) Lymph # (Auto) [place] # (Auto) Eos # (Auto) Baso # (Auto) PT INR Sodium Potassium Chloride Carbon Dioxide Anion Gap BUN Creatinine Est GFR ( Amer) Est GFR (Non-Af Amer) POC Glucose (mg/dL) 132 H 95 Random Glucose Calcium Magnesium Total Bilirubin AST ALT Alkaline Phosphatase Total Protein Albumin Globulin Albumin/Globulin Ratio Triglycerides Cholesterol LDL Cholesterol Direct HDL Cholesterol Thyroxine (T4) TSH 3rd Generation 11/03/17 11/03/17 05:40 11:10 WBC RBC Hgb Hct MCV MCH MCHC RDW Plt Count MPV Neut % (Auto) Lymph % (Auto) [place] % (Auto) Eos % (Auto) Baso % (Auto) Neut # (Auto) Lymph # (Auto) [place] # (Auto) Eos # (Auto) Baso # (Auto) PT INR Sodium 140 Potassium 4.4 Chloride 104 Carbon Dioxide 26 Anion Gap 14 BUN 19 Creatinine 0.8 Est GFR ( Amer) > 60 Est GFR (Non-Af Amer) > 60 POC Glucose (mg/dL) 80 Random Glucose 85 Calcium 9.2 Magnesium 1.6 Total Bilirubin 1.0 AST 33 ALT 39 Alkaline Phosphatase 58 Total Protein 7.2 Albumin 3.6 Globulin 3.6 Albumin/Globulin Ratio 1.0 Triglycerides 79 D Cholesterol 101 LDL Cholesterol Direct 46 HDL Cholesterol 27 L Thyroxine (T4) 8.64 TSH 3rd Generation 0.35 L Assessment & Plan (1) Seizure Assessment and Plan: It is difficult to be sure if what occurred was a seizure. There have been no reported incidents since being in the hospital. I recommend the followin. Telemetry 2. MRI brain without contrast 3. EEG awake and drowsy for 30 mins 4. PT/OT eval 5. FLuids with NS at 100 mL/hr 6. Case management consult Thank you. Status: Acute Priority: High
--- NOTE | 2017-11-03 15:27 | CP.PCM.HP ---
History of Present Illness - History of Present Illness History of Present Illness: CC: Possible Seizure. 86 y/o M, with multiple chronic medical conditions, including Dementia, Alzheimer, COPD, CAD with PPM, Hx of A Fib, CKD, DVT 2014, Bedbound, resident at [facility], brought to [facility], [place] via EMS, also accompany by daughter to be evaluated for episode of AMS associated to witnessed abnormal movements on his upper extremities that continue while in the field. As per EMS, they did not believes they were Seizure activity. Worsening symptoms: As per Daughter, Also Pt had LOC that last for about 3-4 minutes. Aggravated factor: Unable to give cooperate with medical information 2nd to Dementia. As per NH, No Fever, chills, n/v/d, abdominal pain, urinary symptoms but incontinence, syncope, CP, palpitations, sick contact. Head CT: No acute infarct. Old frontal encephalomalacia. Present on Admission - Present on Admission Any Indicators Present on Admission: Yes History of DVT/PE: Yes Review of Systems - Review of Systems Systems not reviewed;Unavailable: Acuity of Condition, Dementia, Altered Mental Status, Other (non verbal) Past Patient History - Infectious Disease Hx of Infectious Diseases: None - Tetanus Immunizations Tetanus Immunization: Unknown - Past Medical History & Family History Past Medical History?: Yes Pertinent Family History: Unknown. - Past Social History Smoking Status: Never Smoked Alcohol: None Drugs: Denies Home Situation {Lives}: Halfway - CARDIAC Hx Cardiac Disorders: Yes Hx Atrial Fibrillation: Yes Hx Cardia Arrhythmia: Yes Hx Hypercholesterolemia: Yes Hx Hypertension: Yes Hx Pacemaker: Yes - PULMONARY Hx Respiratory Disorders: Yes Hx Chronic Obstructive Pulmonary Disease (COPD): Yes Hx Pneumonia: Yes - NEUROLOGICAL Hx Neurological Disorder: Yes Hx Alzheimer's Disease: Yes Hx Dementia: Yes - HEENT Hx HEENT Problems: No - RENAL Hx Chronic Kidney Disease: Yes (Renal insufficiency) - ENDOCRINE/METABOLIC Hx Endocrine Disorders: Yes Hx Diabetes Mellitus Type 2: Yes Hx Hypothyroidism: Yes - HEMATOLOGICAL/ONCOLOGICAL Hx Blood Disorders: Yes Hx AIDS: No Hx Anemia: Yes Hx Human Immunodeficiency Virus (HIV): No - INTEGUMENTARY Hx Dermatological Problems: No - MUSCULOSKELETAL/RHEUMATOLOGICAL Hx Musculoskeletal Disorders: Yes Hx Falls: No Hx Fractures: Yes - GASTROINTESTINAL Hx Gastrointestinal Disorders: Yes Hx Constipation: Yes HX Swallowing Problems: Yes - GENITOURINARY/GYNECOLOGICAL Hx Genitourinary Disorders: Yes Hx Incontinence: Yes Hx Prostate Problems: Yes (bph) - PSYCHIATRIC Hx Psychophysiologic Disorder: Yes Hx Anxiety: Yes Hx Substance Use: No - SURGICAL HISTORY Hx Surgeries: Yes Other/Comment: pacemaker - ANESTHESIA Hx Anesthesia: Yes Hx Anesthesia Reactions: No Meds Home Medications: Home Medication List Medication Instructions Recorded Confirmed Type Multimineral/Multivitamin 1 tab PO DAILY tab 11/05/17 Rx [Therapeutic-M Tab] Rivastigmine [Exelon Cap] 4.5 mg PO DAILY cap 11/05/17 Rx Allergies/Adverse Reactions: Allergies Allergy/AdvReac Type Severity Reaction Status Date / Time No Known Allergies Allergy Verified 07/10/16 16:37 Physical Exam - Constitutional Appears: Chronically Ill - Head Exam Head Exam: NORMAL INSPECTION - Eye Exam Eye Exam: PERRL - ENT Exam ENT Exam: Normal Exam - Neck Exam Neck exam: Positive for: Normal Inspection - Respiratory Exam Respiratory Exam: Decreased Breath Sounds (at bases) - Cardiovascular Exam Cardiovascular Exam: REGULAR RHYTHM, Systolic Murmur (1/6 LSB) - GI/Abdominal Exam GI & Abdominal Exam: Normal Bowel Sounds, Soft - Back Exam Additional comments: Sacral redness - Neurological Exam Additional comments: Forgetful, confused, incomprehensible sounds, no following commands , generalized weakness L/E > U/E - Psychiatric Exam Additional comments: Calm - Skin Skin Exam: Warm Results - Vital Signs Recent Vital Signs: Last Vital Signs Temp 96.8 F L 11/03/17 12:00 Pulse 64 11/03/17 12:00 Resp 20 11/03/17 12:00 BP 107/71 11/03/17 12:00 Pulse Ox 98 11/03/17 12:00 madisyn Austin - Labs Result Diagrams: 11/03/17 05:40 11/03/17 05:40 Labs: Laboratory Results - last 24 hr 11/02/17 11/02/17 11/03/17 16:19 21:21 04:41 WBC RBC Hgb Hct MCV MCH MCHC RDW Plt Count PT 10.9 INR 1.0 Sodium Potassium Chloride Carbon Dioxide Anion Gap BUN Creatinine Est GFR ( Amer) Est GFR (Non-Af Amer) POC Glucose (mg/dL) 132 H 95 Random Glucose Calcium Magnesium Total Bilirubin AST ALT Alkaline Phosphatase Total Protein Albumin Globulin Albumin/Globulin Ratio Triglycerides Cholesterol LDL Cholesterol Direct HDL Cholesterol Thyroxine (T4) TSH 3rd Generation 11/03/17 11/03/17 11/03/17 05:40 05:40 11:10 WBC 8.7 RBC 4.32 L Hgb 13.6 Hct 40.3 MCV 93.1 MCH 31.4 H MCHC 33.7 RDW 14.5 Plt Count 123 L PT INR Sodium 140 Potassium 4.4 Chloride 104 Carbon Dioxide 26 Anion Gap 14 BUN 19 Creatinine 0.8 Est GFR ( Amer) > 60 Est GFR (Non-Af Amer) > 60 POC Glucose (mg/dL) 80 Random Glucose 85 Calcium 9.2 Magnesium 1.6 Total Bilirubin 1.0 AST 33 ALT 39 Alkaline Phosphatase 58 Total Protein 7.2 Albumin 3.6 Globulin 3.6 Albumin/Globulin Ratio 1.0 Triglycerides 79 D Cholesterol 101 LDL Cholesterol Direct 46 HDL Cholesterol 27 L Thyroxine (T4) 8.64 TSH 3rd Generation 0.35 L reviewed J.P. - Imaging and Cardiology CT scan - head Status: Report reviewed by me (J.P.) Assessment & Plan (1) Seizure Status: Acute Priority: High Comment: to be R/O (2) Altered mental status Status: Acute Priority: High (3) COPD (chronic obstructive pulmonary disease) Status: Chronic Priority: Medium (4) Hx of deep venous thrombosis Status: Chronic Priority: Medium (5) Hypothyroidism Status: Inactive Priority: Medium - Assessment and Plan (Free Text) Plan: F/U EEG, CXR, EKG, continue ASA, Duoneb, Cogentin and rest of Tx, PT,OT and Speech eval, Neuro consult appreciated. - Date & Time Date: 11/03/17 Time: 12:00
[2017-11-04] MEDS: Levothyroxine 75 MCG TAB PO SCH (06:27)
--- NOTE | 2017-11-04 07:46 | CP.PCM.PN ---
Subjective - Date & Time of Evaluation Date of Evaluation: 11/04/17 Time of Evaluation: 07:44 - Subjective Subjective: Mr. Rodriguez was seen and examined at the bedside. He is awake, utters incomprehensible words, unable to follow any commands. He is able to move bilateral upper extremities spontaneously with limited movement of the lower extremities. He withdraws from any noxious stimuli. There was no untoward events overnight. Objective - Vital Signs/Intake and Output Vital Signs (last 24 hours): Temp Pulse Resp BP Pulse Ox 97.5 F L 91 H 18 141/90 100 11/04/17 04:50 11/04/17 04:50 11/04/17 04:50 11/04/17 04:50 11/04/17 04:50 - Medications Medications: Current Medications Acetaminophen (Tylenol 325mg Tab) 650 mg PO Q4 PRN PRN Reason: TEMP >101 Acetaminophen (Tylenol 325mg Tab) 650 mg PO Q4H PRN PRN Reason: Pain, Mild (1-3) Albuterol/Ipratropium (Duoneb 3 Mg/0.5 Mg (3 Ml) Ud) 3 ml INH Q12 [facility] Last Admin: 11/03/17 19:16 Dose: 3 ml Ascorbic Acid (Vitamin C 500 Mg Tab) 1,000 mg PO DAILY [facility] Last Admin: 11/03/17 08:55 Dose: 1,000 mg Aspirin (Aspirin Chewable) 81 mg PO DAILY [facility] Last Admin: 11/03/17 08:54 Dose: 81 mg Atorvastatin Calcium (Lipitor) 20 mg PO HS [facility] Last Admin: 11/03/17 21:16 Dose: 20 mg Benztropine Mesylate (Cogentin) 1 mg PO DAILY [facility] Last Admin: 11/03/17 08:55 Dose: 1 mg Bisacodyl (Dulcolax) 10 mg [place] DAILY PRN PRN Reason: Constipation Famotidine (Pepcid) 20 mg PO HS [facility] Last Admin: 11/03/17 21:16 Dose: 20 mg Guaifenesin (Robitussin) 200 mg PO Q6H PRN PRN Reason: Cough Lactulose (Enulose) 10 gm PO BID PRN PRN Reason: Constipation Levothyroxine Sodium (Synthroid) 75 mcg PO DAILY@0630 [facility] Last Admin: 11/04/17 06:27 Dose: 75 mcg Magnesium Hydroxide (Milk Of Magnesia) 30 ml PO HS PRN PRN Reason: Constipation Memantine (Namenda) 10 mg PO DAILY [facility] Last Admin: 11/03/17 08:55 Dose: 10 mg Multivitamins/Minerals (Therapeutic-M Tab) 1 tab PO DAILY [facility] Last Admin: 11/03/17 08:53 Dose: 1 tab Rivastigmine (Exelon Cap) 4.5 mg PO DAILY [facility] Last Admin: 11/03/17 10:59 Dose: Not Given - Labs Labs: 11/03/17 05:40 11/03/17 05:40 PT 10.9 Seconds (9.8-13.1) 11/02/17 16:19 INR 1.0 (0.9-1.2) 11/02/17 16:19 - Constitutional Appears: No Acute Distress - Head Exam Head Exam: NORMAL INSPECTION - Eye Exam Pupil Exam: PERRL - Neurological Exam Neurological Exam: Awake Neuro motor strength exam: Left Upper Extremity: 4, Right Upper Extremity: 4, Left Lower Extremity: 2/1, Right Lower Extremity: 2/1 Additional comments: awake, moves bilateral upper extremities spontaneously with limited movement of the lower extremities. He withdraws from any noxious stimuli. Assessment and Plan (1) Seizure Assessment & Plan: Case discussed with Dr. Burciaga, continue all current medical, physical, occupational, and speech therapies. Recommend repeat CT scan of the head without contrast since MRI of the brain is not possible due to patient has a pacemaker. Pending EEG ronna. Recommend hydration, keep head of bed elevated at least 30 degrees, treat any electrolyte abnormalities. Status: Acute
[2017-11-04] MEDS: Albuterol-Ipratrop 3 mg / 0.5 (3 ml) UD INH SCH ×2 (07:56→19:30)
--- NOTE | 2017-11-04 08:26 | RAD ---
PROCEDURE: CHEST RADIOGRAPH, 1 VIEW HISTORY: COPD COMPARISON: Portable chest 12/19/2016. FINDINGS: LUNGS: No acute infiltrate bilaterally. PLEURA: No pneumothorax or pleural fluid seen. CARDIOVASCULAR: Stable normal cardiac size. No definite pulmonary vascular congestion. Pacemaker reiterated with sternotomy wires again appreciated. Right hemidiaphragm elevation is unchanged. OSSEOUS STRUCTURES: No significant abnormalities. VISUALIZED UPPER ABDOMEN: Normal. OTHER FINDINGS: None. IMPRESSION: No interval acute cardiopulmonary disease appreciable. Improved aeration is seen at the right perihilar region in the interval with no residual. Pacemaker reiterated as well as elevated right hemidiaphragm.
[2017-11-04] MEDS: Multivitamin With Minerals Tab PO SCH (09:20)
--- NOTE | 2017-11-04 13:43 | CT ---
PROCEDURE: CT HEAD WITHOUT CONTRAST. HISTORY: new onset seizure COMPARISON: Noncontrast head CT 11/02/2017. TECHNIQUE: Axial computed tomography images were obtained through the head/brain without intravenous contrast. Radiation dose: Total exam DLP = 993.89 mGy-cm. This CT exam was performed using one or more of the following dose reduction techniques: Automated exposure control, adjustment of the mA and/or kV according to patient size, and/or use of iterative reconstruction technique. FINDINGS: HEMORRHAGE: No intracranial hemorrhage. BRAIN: Stable exam overall. No interval change in diffuse cerebral atrophy chronic microangiopathy as well small left frontal lobar chronic infarction. No interval mass effect or cortical edema. VENTRICLES: Unremarkable. No hydrocephalus. CALVARIUM: Unremarkable. PARANASAL SINUSES: Unremarkable as visualized. No significant inflammatory changes. MASTOID AIR CELLS: Unremarkable as visualized. No inflammatory changes. OTHER FINDINGS: None. 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 Follow-up CT or MRI are available if clinically warranted. No acute intracranial hemorrhage.
--- NOTE | 2017-11-04 13:49 | CP.PCM.PN ---
Subjective - Date & Time of Evaluation Date of Evaluation: 11/04/17 Time of Evaluation: 12:00 - Subjective Subjective: awake , mumbling sounds , not following commands Objective - Vital Signs/Intake and Output Vital Signs (last 24 hours): Temp Pulse Resp BP Pulse Ox 98.3 F 72 20 120/66 95 11/04/17 12:00 11/04/17 12:00 11/04/17 12:00 11/04/17 12:00 11/04/17 12:00 - Medications Medications: Current Medications Acetaminophen (Tylenol 325mg Tab) 650 mg PO Q4 PRN PRN Reason: TEMP >101 Acetaminophen (Tylenol 325mg Tab) 650 mg PO Q4H PRN PRN Reason: Pain, Mild (1-3) Albuterol/Ipratropium (Duoneb 3 Mg/0.5 Mg (3 Ml) Ud) 3 ml INH Q12 [facility] Last Admin: 11/04/17 07:56 Dose: 3 ml Ascorbic Acid (Vitamin C 500 Mg Tab) 1,000 mg PO DAILY [facility] Last Admin: 11/04/17 09:20 Dose: 1,000 mg Aspirin (Aspirin Chewable) 81 mg PO DAILY [facility] Last Admin: 11/04/17 09:50 Dose: 81 mg Atorvastatin Calcium (Lipitor) 20 mg PO HS [facility] Last Admin: 11/03/17 21:16 Dose: 20 mg Benztropine Mesylate (Cogentin) 1 mg PO DAILY [facility] Last Admin: 11/04/17 09:20 Dose: 1 mg Bisacodyl (Dulcolax) 10 mg [place] DAILY PRN PRN Reason: Constipation Famotidine (Pepcid) 20 mg PO HS [facility] Last Admin: 11/03/17 21:16 Dose: 20 mg Guaifenesin (Robitussin) 200 mg PO Q6H PRN PRN Reason: Cough Lactulose (Enulose) 10 gm PO BID PRN PRN Reason: Constipation Levothyroxine Sodium (Synthroid) 75 mcg PO DAILY@0630 [facility] Last Admin: 11/04/17 06:27 Dose: 75 mcg Magnesium Hydroxide (Milk Of Magnesia) 30 ml PO HS PRN PRN Reason: Constipation Memantine (Namenda) 10 mg PO DAILY [facility] Last Admin: 11/04/17 09:20 Dose: 10 mg Multivitamins/Minerals (Therapeutic-M Tab) 1 tab PO DAILY [facility] Last Admin: 11/04/17 09:20 Dose: 1 tab Rivastigmine (Exelon Cap) 4.5 mg PO DAILY [facility] - Labs Labs: 11/03/17 05:40 11/03/17 05:40 PT 10.9 Seconds (9.8-13.1) 11/02/17 16:19 INR 1.0 (0.9-1.2) 11/02/17 16:19 - Constitutional Appears: Chronically Ill - Head Exam Head Exam: NORMAL INSPECTION - Eye Exam Eye Exam: PERRL - ENT Exam ENT Exam: Normal Exam - Neck Exam Neck Exam: Normal Inspection - Respiratory Exam Respiratory Exam: Decreased Breath Sounds (at bases) - Cardiovascular Exam Cardiovascular Exam: REGULAR RHYTHM, Murmur - GI/Abdominal Exam GI & Abdominal Exam: Soft, Normal Bowel Sounds - Extremities Exam Extremities Exam: Normal Inspection - Back Exam Additional comments: Sacral redness - Neurological Exam Neurological Exam: Awake Additional comments: mumbling sounds , not following commands , moves U/E , limited movements L/E - Psychiatric Exam Additional comments: calm - Skin Skin Exam: Warm Assessment and Plan (1) Seizure Status: Acute (2) Altered mental status Status: Acute (3) COPD (chronic obstructive pulmonary disease) Status: Chronic (4) Hx of deep venous thrombosis Status: Chronic (5) Hypothyroidism Status: Inactive
[2017-11-04] MEDS ORDERED: guaiFENesin DM 200 mg-20 mg/10 ml UD PO PRN (14:15)
[2017-11-05] MEDS: Levothyroxine 75 MCG TAB PO SCH (05:43)
[2017-11-05] MEDS: Albuterol-Ipratrop 3 mg / 0.5 (3 ml) UD INH SCH ×3 (07:38→23:28)
[2017-11-05] MEDS: Multivitamin With Minerals Tab PO SCH (08:22)
--- NOTE | 2017-11-05 09:40 | CP.PCM.PN ---
Subjective - Date & Time of Evaluation Date of Evaluation: 11/05/17 Time of Evaluation: 09:40 - Subjective Subjective: Mr. Rodriguez was seen and examined at the bedside. He is awake, utters incomprehensible words, unable to follow any commands. He is able to move bilateral upper extremities spontaneously with limited movement of the lower extremities. He withdraws from any noxious stimuli. 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 No intracranial hemorrhage.There was no untoward events overnight. Objective - Vital Signs/Intake and Output Vital Signs (last 24 hours): Temp Pulse Resp BP Pulse Ox 98.3 F 87 21 120/56 L 96 11/05/17 08:15 11/05/17 08:15 11/05/17 08:15 11/05/17 08:15 11/05/17 08:15 - Medications Medications: Current Medications Acetaminophen (Tylenol 325mg Tab) 650 mg PO Q4 PRN PRN Reason: TEMP >101 Acetaminophen (Tylenol 325mg Tab) 650 mg PO Q4H PRN PRN Reason: Pain, Mild (1-3) Albuterol/Ipratropium (Duoneb 3 Mg/0.5 Mg (3 Ml) Ud) 3 ml INH Q12 [facility] Last Admin: 11/05/17 07:38 Dose: 3 ml Ascorbic Acid (Vitamin C 500 Mg Tab) 1,000 mg PO DAILY [facility] Last Admin: 11/05/17 08:22 Dose: 1,000 mg Aspirin (Aspirin Chewable) 81 mg PO DAILY [facility] Last Admin: 11/05/17 08:20 Dose: 81 mg Atorvastatin Calcium (Lipitor) 20 mg PO [facility] Last Admin: 11/04/17 21:00 Dose: 20 mg Benztropine Mesylate (Cogentin) 1 mg PO DAILY [facility] Last Admin: 11/05/17 08:21 Dose: 1 mg Bisacodyl (Dulcolax) 10 mg [facility] DAILY PRN PRN Reason: Constipation Famotidine (Pepcid) 20 mg PO [facility] Last Admin: 11/04/17 21:00 Dose: 20 mg Guaifenesin (Robitussin) 200 mg PO Q6H PRN PRN Reason: Cough Guaifenesin/Dextromethorphan (Robitussin Dm) 10 ml PO Q4 PRN PRN Reason: Cough Last Admin: 11/04/17 17:24 Dose: 10 ml Lactulose (Enulose) 10 gm PO BID PRN PRN Reason: Constipation Levothyroxine Sodium (Synthroid) 75 mcg PO DAILY@0630 [facility] Last Admin: 11/05/17 05:43 Dose: 75 mcg Magnesium Hydroxide (Milk Of Magnesia) 30 ml PO HS PRN PRN Reason: Constipation Memantine (Namenda) 10 mg PO DAILY [facility] Last Admin: 11/05/17 08:22 Dose: 10 mg Multivitamins/Minerals (Therapeutic-M Tab) 1 tab PO DAILY [facility] Last Admin: 11/05/17 08:22 Dose: 1 tab Rivastigmine (Exelon Cap) 4.5 mg PO DAILY [facility] - Labs Labs: 11/03/17 05:40 11/03/17 05:40 PT 10.9 Seconds (9.8-13.1) 11/02/17 16:19 INR 1.0 (0.9-1.2) 11/02/17 16:19 - Constitutional Appears: No Acute Distress - Head Exam Head Exam: NORMAL INSPECTION - Eye Exam Pupil Exam: PERRL - Neurological Exam Neurological Exam: Awake Neuro motor strength exam: Left Upper Extremity: 4, Right Upper Extremity: 4, Left Lower Extremity: 2/1, Right Lower Extremity: 2/1 Additional comments: awake, confused, moves extremities however upper is stronger than the lower extremities. Assessment and Plan (1) Seizure Assessment & Plan: Case discussed with Dr. Macias, continue all current medical, physical, occupational, and speech therapies. Pending EEG ronna. Recommend hydration, keep head of bed elevated at least 30 degrees, treat any electrolyte abnormalities Status: Acute
[2017-11-05] MEDS ORDERED: Albuterol-Ipratrop 3 mg / 0.5 (3 ml) UD INH SCH (12:00)
--- NOTE | 2017-11-05 14:26 | CP.PCM.PN ---
Subjective - Date & Time of Evaluation Date of Evaluation: 11/05/17 Time of Evaluation: 12:00 - Subjective Subjective: awake, smiling , able to call me Dr Pérez, Patient's family at bedside Objective - Vital Signs/Intake and Output Vital Signs (last 24 hours): Temp Pulse Resp BP Pulse Ox 98.3 F 87 21 120/56 L 96 11/05/17 08:15 11/05/17 08:15 11/05/17 08:15 11/05/17 08:15 11/05/17 08:15 - Medications Medications: Current Medications Acetaminophen (Tylenol 325mg Tab) 650 mg PO Q4 PRN PRN Reason: TEMP >101 Acetaminophen (Tylenol 325mg Tab) 650 mg PO Q4H PRN PRN Reason: Pain, Mild (1-3) Albuterol/Ipratropium (Duoneb 3 Mg/0.5 Mg (3 Ml) Ud) 3 ml INH RQ8 [facility] Ascorbic Acid (Vitamin C 500 Mg Tab) 1,000 mg PO DAILY [facility] Last Admin: 11/05/17 08:22 Dose: 1,000 mg Aspirin (Aspirin Chewable) 81 mg PO DAILY [facility] Last Admin: 11/05/17 08:20 Dose: 81 mg Atorvastatin Calcium (Lipitor) 20 mg PO [facility] Last Admin: 11/04/17 21:00 Dose: 20 mg Benztropine Mesylate (Cogentin) 1 mg PO DAILY [facility] Last Admin: 11/05/17 08:21 Dose: 1 mg Bisacodyl (Dulcolax) 10 mg [facility] DAILY PRN PRN Reason: Constipation Famotidine (Pepcid) 20 mg PO [facility] Last Admin: 11/04/17 21:00 Dose: 20 mg Guaifenesin (Robitussin) 200 mg PO Q6H PRN PRN Reason: Cough Guaifenesin/Dextromethorphan (Robitussin Dm) 10 ml PO Q4 PRN PRN Reason: Cough Last Admin: 11/04/17 17:24 Dose: 10 ml Lactulose (Enulose) 10 gm PO BID PRN PRN Reason: Constipation Levothyroxine Sodium (Synthroid) 75 mcg PO DAILY@0630 [facility] Last Admin: 11/05/17 05:43 Dose: 75 mcg Magnesium Hydroxide (Milk Of Magnesia) 30 ml PO HS PRN PRN Reason: Constipation Memantine (Namenda) 10 mg PO DAILY [facility] Last Admin: 11/05/17 08:22 Dose: 10 mg Multivitamins/Minerals (Therapeutic-M Tab) 1 tab PO DAILY [facility] Last Admin: 11/05/17 08:22 Dose: 1 tab Rivastigmine (Exelon Cap) 4.5 mg PO DAILY [facility] Last Admin: 11/05/17 11:24 Dose: 4.5 mg - Labs Labs: 11/03/17 05:40 11/03/17 05:40 PT 10.9 Seconds (9.8-13.1) 11/02/17 16:19 INR 1.0 (0.9-1.2) 11/02/17 16:19 - Constitutional Appears: Chronically Ill - Head Exam Head Exam: NORMAL INSPECTION - Eye Exam Eye Exam: PERRL - ENT Exam ENT Exam: Normal Exam - Neck Exam Neck Exam: Normal Inspection - Respiratory Exam Respiratory Exam: Decreased Breath Sounds (at bases) - Cardiovascular Exam Cardiovascular Exam: REGULAR RHYTHM, Murmur - GI/Abdominal Exam GI & Abdominal Exam: Soft, Normal Bowel Sounds - Extremities Exam Extremities Exam: Normal Inspection - Back Exam Additional comments: Sacral redmess - Neurological Exam Neurological Exam: Awake Additional comments: able to talk with one -two words, follows simple commands like squeeze my hand , movement U/E > L/E - Psychiatric Exam Additional comments: calm - Skin Skin Exam: Warm Assessment and Plan (1) Seizure Assessment & Plan: ruled out , EEG negative Status: Acute (2) Altered mental status Assessment & Plan: syncope , 2nd to dehydration Status: Acute (3) Syncope Status: Acute (4) COPD (chronic obstructive pulmonary disease) Status: Chronic (5) Hx of deep venous thrombosis Status: Chronic (6) Hypothyroidism Status: Inactive - Assessment and Plan (Free Text) Plan: Cleared by Neurologist , improved , stable to be discharged to [facility] , I will follow Patient in this Facility
--- NOTE | 2017-11-05 15:22 | CP.PCM.PCO ---
Assessment/Plan - Assessment and Plan (Free Text) Assessment: Patient seen and examined Discussed with Neuro [employer]- eeg negative syncopal event r/t dehydration patient encouraged hydration and dc back to [facility] discussed with Dr Pérez who agrees with DC. SW made aware for arrangements.
--- NOTE | 2017-11-05 15:26 | PQF GENQUE ---
Dr. Pérez, A mental status change is documented in the Medical Record. Please specify the underlying cause:if known after the work up is completed: Such as: -- Due to medication -- Cardiac condition -- Electrolyte/metabolic imbalance -- Infectious process -- Neurologic condition -- Psychiatric condition -- Respiratory condition -- Other, please specify H and P: Assessment Plan : (1) Seizure Status: Acute Priority: High (2) Altered mental status Status: Acute Priority: High (3) COPD (chronic obstructive pulmonary disease) Status: Chronic Priority: Medium (4) Hx of deep venous thrombosis Status: Chronic Priority: Medium (5) Hypothyroidism Status: Chronic Priority: Medium - Assessment and PlaN: F/U EEG, CXR, EKG, continue ASA, Duoneb, Cogentin and rest of Tx, PT,OT and Speech eval, Neuro consult appreciated. 11/03 Neuro consult: When I saw the patient, he was at his baseline according to his daughter, who was present at bedside. She informed me that what was actually witnessed at the detention was an episode of loss of consciousness that occurred after the patient had eaten. He had some shaking/stiffening and then lost consciousness for about 3-4 minutes. It is not clear if there was any urinary/bowel incontinence, but there was no evidence of injury to the mouth or teeth. Assesment: 1) Seizure :It is difficult to be sure if what occurred was a seizure. There have been no reported incidents since being in the hospital. I recommend the followin. Telemetry 2. MRI brain without contrast 3. EEG awake and drowsy for 30 mins 4. PT/OT eval 5. FLuids with NS at 100 mL/hr 6. Case management consult This form is a permanent part of the medical record Clarification of your documentation is requested to better reflect the severity of illness and intensity of treatment of your patient. Indicators present [] Specify: [] [] Specify: [] [] Specify: [] [] Specify: [] Location in the medical record that reflects the above clinical findings: [] Treatment Provided: [] PHYSICIAN'S RESPONSE Based on your medical judgment of the clinical indicators outlined above please clarify the following: [] Practitioner response [] If unable to determine, please check the box, sign and date. Present On Admission (POA) Indicator: [] Present at the time of admission [] Not present at the time of admission [] Clinically Undetermined In responding to this query, please exercise your independent professional judgment. The fact that a question is asked does not imply that any particular answer is desired or expected. Thank you for your clarification on this documentation. If you have any questions please call. * Thank you, Ofelia Franco RN ext. #[phone] MTDD
[2017-11-05 20:05] VITALS: RESP 18
[2017-11-06 00:10] VITALS: BP 110/72; PULSE 78; TEMP 99.6; O2SAT 96
== END 2017-11-06 01:00 | DRG 641 ==
LOC: H.ER 14:09 → H.ERHOLD 15:42 → H.TEL 17:59 → OBSVTOIN 11-04 13:48
PROVIDERS: ADMIT Internal Medicine Pulmonary Disease; ATTEND Internal Medicine Pulmonary Disease
DX: E86.0 Dehydration (principal); G30.9 Alzheimer's disease, unspecified; F02.80 Dementia in other diseases classified elsewhere, unspecified severity, without behavioral disturbance, psychotic disturbance, mood disturbance, and anxiety; I25.10 Atherosclerotic heart disease of native coronary artery without angina pectoris; J44.9 Chronic obstructive pulmonary disease, unspecified; Z86.718 Personal history of other venous thrombosis and embolism; Z95.0 Presence of cardiac pacemaker; N40.0 Benign prostatic hyperplasia without lower urinary tract symptoms; N18.9 Chronic kidney disease, unspecified; I12.9 Hypertensive chronic kidney disease with stage 1 through stage 4 chronic kidney disease, or unspecified chronic kidney disease; E03.9 Hypothyroidism, unspecified; E78.00 Pure hypercholesterolemia, unspecified; I48.91 Unspecified atrial fibrillation; F41.9 Anxiety disorder, unspecified; E05.90 Thyrotoxicosis, unspecified without thyrotoxic crisis or storm; R41.0 Disorientation, unspecified